=== PATIENT | female | born 1940 | race Caucasian/White ===

== ENCOUNTER 2018-12-09 12:14 | Emergency (ER) | payer OTHER ==
[~2018-12-09] VITALS: Ht 149.9 cm; Wt 83.0 kg
[2018-12-09 12:32] VITALS: Ht 149.9 cm; Wt 83.0 kg
--- NOTE | 2018-12-09 12:39 | ERD ---
ER Documentation Chief Complaint Chief Complaint COUGHX 8 DAYS HPI 78yoF hx of HTN and preDM who presents to the emergency room describing approximately 8 days of cough and congestion. She states that she has a slightly productive cough. No fevers during this timeframe. The patient denies any chest pressure or exertional symptoms. She does have a positive sick contact with a family member over the last several days with similar URI type symptoms. Currently she denies any weakness, no significant shortness of breath and no pain. Symptoms are described as mild. ROS All systems reviewed and are negative except as per history of present illness. Medications Home Meds Active Scripts Albuterol Sulfate* (Ventolin HFA*) 18 Gm Hfa.aer.ad, 2 PUFF INHALATION Q4H, #1 INHALER Prov:JACKELIN LEE MD 12/09/18 Reported Medications Cholecalciferol (Vitamin D3) (Vitamin D-3) 2,000 Unit Tablet, 2000 UNIT PO DAILY, TAB 12/09/18 Aspirin* (Aspirin* EC) 81 Mg Tablet.dr, 81 MG PO DAILY, TAB 12/09/18 Acetaminophen* (Acetaminophen*) 500 MG Extra Strength Tablet, 500 MG PO NEEDED PRN for PAIN AND OR ELEVATED TEMP, TAB 12/09/18 Atorvastatin Calcium* (Atorvastatin Calcium*) 20 Mg Tablet, 20 MG PO QHS, #30 TAB 12/09/18 Benazepril Hcl* (Benazepril Hcl*) 20 Mg Tablet, 20 MG PO DAILY, #30 TAB 12/09/18 Allergies Allergies: Coded Allergies: No Known Allergy (Unverified , 12/09/18) FmHx Family History: No diabetes Physical Exam Vitals Vital Signs Date Temp Pulse Resp B/P (MAP) Pulse Ox O2 O2 Flow FiO2 Time Delivery Rate 12/09/18 97.7 81 20 134/60 96 12:32 (84) Physical Exam General: Well developed, well nourished, no acute distress Head: Normocephalic, atraumatic. Eyes: Pupils equally reactive, EOM intact ENT: Moist mucous membranes Neck: Supple, no lymphadenopathy Respiratory: Lungs clear bilaterally, no distress Cardiovascular: RRR, no murmurs, rubs, or gallops Abdominal: Soft, non-tender, non-distended, no peritoneal signs : Deferred MSK: No edema, no unilateral swelling, 5/5 strength Neurologic: Alert and oriented, moving all extremities, normal speech, no focal weakness, no cerebellar signs Skin: No rash Psych: Normal mood Procedures/MDM EKG, MONITORS, & DIAGNOSTIC IMAGING: CXR: Chest x-ray: I reviewed and interpreted a 1 view of the chest Mediastinum: No enlargement Cardiac silhouette: No cardiomegaly Airspace: Clear lung hunter bilaterally without evidence of pneumothorax Bones: No evidence of fracture MEDICAL DECISION MAKING: The patient is extremely well-appearing with normal vital signs no hypoxia and clear lung sounds. Her clinical exam and presentation are very consistent with a viral upper respiratory tract infection. However given her age she is at somewhat higher risk and would benefit from a chest x-ray to rule out bacterial pneumonia even though there is a low pretest probability for this process. She exhibits no signs or symptoms for cardiac etiology, pulmonary process such as pulmonary embolism. Patient exhibits no systemic signs of symptoms of infection such as fever and no evidence clinically of bacteremia. For this reason I do not believe laboratory testing or cultures are necessary. ER COURSE: * The patient continues to be well-appearing and chest x-ray is normal. The patient can be discharged with symptom control. No indication for antibiotics. Return precautions discussed. CONSULTATION: None DISPOSITION PLAN: The patient does not have an identifiable emergent medical condition that warrants inpatient hospitalization at this time. The patient is deemed safe for discharge with outpatient follow-up. We discussed follow up with the patient's primary care doctor within 24 to 48 hours as needed. We also discussed return to the emergency room for worsening symptoms or worsening condition. Outpatient referral: None required Discharge Medications: Albuterol Departure Diagnosis: Primary Impression: Viral upper respiratory tract infection Condition: JACKELIN Scruggs MD Dec 09, 2018 12:39
[2018-12-09] MEDS ORDERED: ALBU18HF INHALATION (13:00)
[2018-12-09] MEDS ORDERED: BENA20TA4 PO (13:05)
[2018-12-09] MEDS ORDERED: ATOR20TA38 PO (13:05)
[2018-12-09] MEDS ORDERED: ACET-141 PO (13:06)
[2018-12-09] MEDS ORDERED: ASPI-817 PO (13:06)
[2018-12-09] MEDS ORDERED: CHOL200056 PO (13:07)
[2018-12-09 13:31] VITALS: BP 138/73; PULSE 78; RESP 20
[2018-12-10] MEDS ORDERED: POLY10DR19 LEFT EYE (16:04)
== END 2018-12-09 13:32 | disposition home or self-care (01) ==
LOC: E/R 12:14
DX: J06.9 Acute upper respiratory infection, unspecified (principal); I10 Essential (primary) hypertension; Z79.82 Long term (current) use of aspirin
CPT/HCPCS: 71045

== ENCOUNTER 2018-12-10 15:06 | Emergency (ER) | payer OTHER ==
[~2018-12-10] VITALS: Ht 152.4 cm; Wt 83.1 kg
[~2018-12-10 15:06] MED LIST: ACET-141 PO; ALBU18HF INHALATION; ASPI-817 PO; ATOR20TA38 PO; BENA20TA4 PO; CHOL200056 PO
[2018-12-10 15:08] VITALS: BP 155/74; PULSE 76; RESP 16; Ht 152.4 cm; Wt 83.1 kg
[2018-12-10] MEDS ORDERED: POLY10DR19 LEFT EYE (16:04)
--- NOTE | 2018-12-10 17:40 | ERD ---
ER Documentation Chief Complaint Chief Complaint L eye redness since last night HPI 78-year-old female presented emergency department complaining of discharge and redness to her left eye for the past 1 day. Symptoms are constant. She also reports itching. She denies any visual changes, severe pain, fevers, chills, periorbital swelling, or other symptoms. ROS All systems reviewed and are negative except as per history of present illness. Medications Home Meds Active Scripts Polymyxin B Sulfate-TMP* (Polymyxin B-TMP Eye Drops*) 10 Ml Drops, 1 DROP LEFT EYE QID for 7 Days, #1 BOTTLE Prov:BUCK DASILVA PA-C 12/10/18 Albuterol Sulfate* (Ventolin HFA*) 18 Gm Hfa.aer.ad, 2 PUFF INHALATION Q4H, #1 INHALER Prov:JACKELIN LEE MD 12/09/18 Reported Medications Cholecalciferol (Vitamin D3) (Vitamin D-3) 2,000 Unit Tablet, 2000 UNIT PO DAILY, TAB 12/09/18 Aspirin* (Aspirin* EC) 81 Mg Tablet.dr, 81 MG PO DAILY, TAB 12/09/18 Acetaminophen* (Acetaminophen*) 500 MG Extra Strength Tablet, 500 MG PO NEEDED PRN for PAIN AND OR ELEVATED TEMP, TAB 12/09/18 Atorvastatin Calcium* (Atorvastatin Calcium*) 20 Mg Tablet, 20 MG PO QHS, #30 TAB 12/09/18 Benazepril Hcl* (Benazepril Hcl*) 20 Mg Tablet, 20 MG PO DAILY, #30 TAB 12/09/18 Allergies Allergies: Coded Allergies: No Known Allergy (Unverified , 12/09/18) PMhx/Soc History of Surgery: Yes ([place] eye sx) Anesthesia Reaction: No Hx Cardiac Disorders: Yes (HTN) Hx Alcohol Use: No Hx Substance Use: No Hx Tobacco Use: No Smoking Status: Never smoker FmHx Family History: No diabetes Physical Exam Vitals Vital Signs Date Temp Pulse Resp B/P (MAP) Pulse Ox O2 O2 Flow FiO2 Time Delivery Rate 12/10/18 98.2 76 16 155/74 100 15:08 (101) Physical Exam Const: No acute distress Head: Atraumatic Eyes: Left conjunctival injection with mild amount of purulent discharge noted. No obvious visual acuity deficits. No periorbital edema. Extraocular movements are intact bilaterally. ENT: Normal External Ears, Nose and Mouth. Neck: Full range of motion. No meningismus. Resp: No respiratory distress. Skin: No petechiae or rashes Ext: No cyanosis, or edema Neur: Awake and alert Psych: Normal Mood and Affect Procedures/MDM 78-year-old female presented to the emergency department with signs and symptoms most consistent with a left conjunctivitis, likely bacterial etiology. Ophthalmologic Assessment: Patient's ocular symptoms have stabilized while they have been evaluated in the department and are appropriate for outpatient work up. No evidence of ruptured globe, retinal detachment, acute angle closure glaucoma, or deep space infection. Plan for 24 hour ophthalmologic follow up. No evidence of life-threatening pathology at time of discharge. Pt/family in agreement with discharge plan/diagnosis. Pt/family advised to return immediately with any new or worsening symptoms. Follow-up with primary care physician within the next 1-2 days. Patient's blood pressure was elevated (>120/80) but appears stable without evidence of hypertension emergency or urgency. The patient is to follow-up and pursue outpatient monitoring and therapy with their primary care physician within 1 week and return immediately if they have any new, worsening, or concerning symptoms. Disclaimer: I nadvertent spelling and grammatical errors are likely due to EHR/dictation software use and do not reflect on the overall quality of patient care. Also, please note that the electronic time recorded on this note does not necessarily reflect the actual time of the patient encounter. Departure Diagnosis: Primary Impression: Conjunctivitis Condition: Fair Patient Instructions: Conjunctivitis Caused by Infection Additional Instructions: Llame al doctor CONNIE y paresh carmelita RADHA PARA DENTRO DE 1-2 DURAND.Dgale a la secretaria que nosotros le instruimos hacer esta radha.Avise o llame si dowling condicin se empeora antes de la radha. Regresa aqui si peor o no mejor. BUCK DASILVA PA-C Dec 10, 2018 17:40
== END 2018-12-10 16:19 | disposition home or self-care (01) ==
LOC: FTE 15:06
DX: H10.9 Unspecified conjunctivitis (principal); I10 Essential (primary) hypertension; Z79.82 Long term (current) use of aspirin
CPT/HCPCS: 99283